=== PATIENT | male | born 1985 | race Caucasian/White ===

== ENCOUNTER 2023-06-09 16:26 | Outpatient (CLI) | payer OTHER, SELFPAY | END 2023-06-09 16:27 | disposition home or self-care (01) | LOC: AMB 06-26 19:40 | PROVIDERS: Visit Provider Emergency Medicine | DX: S89.92XA Unspecified injury of left lower leg, initial encounter (principal); V49.40XA Driver injured in collision with unspecified motor vehicles in traffic accident, initial encounter; Y92.413 State road as the place of occurrence of the external cause | CPT/HCPCS: A0425; A0427 ==

== ENCOUNTER 2023-06-09 17:12 | Emergency (ER) | payer OTHER, SELFPAY ==
[2023-06-09] VITALS (17 sets, daily range): BP systolic 117–139; BP diastolic 72–85; PULSE 78–86; RESP 18; TEMP 36.5; O2SAT 95–97
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
== END 2023-06-09 18:58 | disposition home or self-care (01) ==
PROVIDERS: Emergency Provider Emergency Medicine
DX: S80.812A Abrasion, left lower leg, initial encounter (principal); V40.0XXA Car driver injured in collision with pedestrian or animal in nontraffic accident, initial encounter
CPT/HCPCS: 71045; 73590; 99283; 99284; 99291; G0390